=== PATIENT | male | born 1985 | race Caucasian/White ===

== ENCOUNTER 2021-03-28 01:43 | Emergency (ER) | payer OTHER | END 2021-03-28 04:52 | disposition left against medical advice (07) | LOC: ER 01:43 | DX: Z53.21 Procedure and treatment not carried out due to patient leaving prior to being seen by health care provider (principal) ==

== ENCOUNTER 2021-04-04 22:24 | Emergency (ER) | payer OTHER ==
[~2021-04-04] VITALS: Ht 162.6 cm; Wt 81.7 kg
[2021-04-05] MEDS ORDERED: CLIN300 PO (00:06)
== END 2021-04-05 00:44 | disposition home or self-care (01) ==
LOC: ER 22:24
DX: L03.031 Cellulitis of right toe (principal); Z88.2 Allergy status to sulfonamides; Z88.0 Allergy status to penicillin
CPT/HCPCS: 99283; A9270

== ENCOUNTER 2021-06-12 10:43 | Emergency (ER) | payer OTHER ==
[~2021-06-12] VITALS: Ht 167.6 cm; Wt 83.9 kg
[~2021-06-12 10:43] MED LIST: CLIN300 PO
[2021-06-12] MEDS ORDERED: METH10 PO (10:50)
== END 2021-06-12 11:45 | disposition home or self-care (01) ==
LOC: ER 10:43
DX: S62.356A Nondisplaced fracture of shaft of fifth metacarpal bone, right hand, initial encounter for closed fracture (principal); W22.01XA Walked into wall, initial encounter
CPT/HCPCS: 29125; 73130; 99283-25

== ENCOUNTER 2022-03-20 21:49 | Emergency (ER) | payer OTHER ==
[~2022-03-20] VITALS: Ht 165.1 cm; Wt 81.7 kg
[~2022-03-20 21:49] MED LIST changes: +METH10 PO
== END 2022-03-20 22:44 | disposition home or self-care (01) ==
LOC: ER 21:49
DX: S93.602A Unspecified sprain of left foot, initial encounter (principal); W01.0XXA Fall on same level from slipping, tripping and stumbling without subsequent striking against object, initial encounter
CPT/HCPCS: 73630; 99283-25; A9270